=== PATIENT | female | born 1960 | race Caucasian/White ===

== ENCOUNTER 2017-03-18 15:59 | Emergency (ER) | payer OTHER ==
[~2017-03-18] VITALS: Ht 154.9 cm; Wt 90.0 kg
[2017-03-18 16:00] VITALS: Ht 154.9 cm; Wt 90.0 kg
--- NOTE | 2017-03-18 16:40 | ERD ---
ER Documentation Chief Complaint Date/Time DATE: 03/18/17 TIME: 16:37 Chief Complaint Dizziness and intermittent hand numbness x1 week. HPI Patient is a 56-year-old female with hypertension who presents with 1 week of lightheadedness that is worse with standing. She also reports a gradual onset, constant, diffuse headache. She complains of paresthesias to her bilateral hands for 1 month, as well as her legs feeling heavy. She denies fever, dysuria , dark stool, focal weakness, vomiting, chest pain. She reports occasional shortness of breath on exertion that resolves with rest. She acknowledges anxiety, denies depression. She reports feeling nausea. She thinks her legs are more swollen than usual. She reports occasional palpitations. ROS All systems reviewed and are negative except as per history of present illness. Allergies Allergies: Coded Allergies: No Known Allergy (Unverified , 03/18/17) PMhx/Soc Past medical history: Hypertension, DVT Past surgical history: Hysterectomy, IVC filter. Social history: Denies tobacco, alcohol or illicit drugs. FmHx Family History: No coronary disease, No diabetes Physical Exam Vitals Vital Signs Date Time Temp Pulse Resp B/P Pulse Ox O2 Delivery O2 Flow Rate FiO2 03/18/17 16:00 97.8 82 14 164/81 96 Physical Exam Const: Alert, no acute distress Head: Atraumatic Eyes: Normal Conjunctiva, no pallor, no icterus ENT: Normal External Ears, Nose and Mouth. Moist mucous membranes Neck: Full range of motion..~ No meningismus. Resp: Clear to auscultation bilaterally, no wheezes, no rales Cardio: Regular rate and rhythm, no murmurs Abd: Soft, non tender, non distended. No rebound or guarding Skin: No petechiae or rashes Back: No midline or flank tenderness Ext: No cyanosis, or edema, no calf tenderness or induration. Neur: Awake and alert, cranial nerves II through XII intact bilaterally, strength and sensation full in 4 extremities, no pronator drift, no dysmetria. Normal gait. Psych: Normal Mood and Affect Result Diagram: 03/18/17 1650 03/18/17 1650 Results 24 hrs Laboratory Tests Test 03/18/17 16:50 White Blood Count 9.810^3/ul Red Blood Count 4.7210^6/ul Hemoglobin 14.0g/dl Hematocrit 41.7% Mean Corpuscular Volume 88.3fl Mean Corpuscular Hemoglobin 29.7pg Mean Corpuscular Hemoglobin Concent 33.6g/dl Red Cell Distribution Width 13.1% Platelet Count 55154^3/UL Mean Platelet Volume 9.7fl Neutrophils % 55.1% Lymphocytes % 34.4% Monocytes % 8.4% Eosinophils % 1.4% Basophils % 0.5% Nucleated Red Blood Cells % 0.0/100WBC Neutrophils # 5.410^3/ul Lymphocytes # 3.410^3/ul Monocytes # 0.810^3/ul Eosinophils # 0.110^3/ul Basophils # 0.110^3/ul Nucleated Red Blood Cells # 0.010^3/ul Urine Color YELLOW Urine Clarity SLIGHTLY CLOUDY Urine pH 5.0 Urine Specific [place] 1.009 Urine Ketones NEGATIVEmg/dL Urine Nitrite NEGATIVEmg/dL Urine Bilirubin NEGATIVEmg/dL Urine Urobilinogen NEGATIVEmg/dL Urine Leukocyte Esterase NEGATIVELeu/ul Urine Microscopic RBC 0/HPF Urine Microscopic WBC 2/HPF Urine Bacteria FEW/HPF Urine Hemoglobin NEGATIVEmg/dL Urine Glucose NEGATIVEmg/dL Urine Total Protein NEGATIVEmg/dl Sodium Level 141mmol/L Potassium Level 3.9mmol/L Chloride Level 96mmol/L Carbon Dioxide Level 29mmol/L Anion Gap 20 Blood Urea Nitrogen 17mg/dl Creatinine 0.91mg/dl Glucose Level 96mg/dl Calcium Level 10.1mg/dl Total Bilirubin 1.1mg/dl Direct Bilirubin 0.00mg/dl Indirect Bilirubin 1.1mg/dl Aspartate Amino Transf (AST/SGOT) 40IU/L Alanine Aminotransferase (ALT/SGPT) 53IU/L Alkaline Phosphatase 105IU/L Troponin I < 0.012ng/ml Total Protein 8.9g/dl Albumin 4.8g/dl Globulin 4.10g/dl Albumin/Globulin Ratio 1.17 Procedures/MDM EKG read by me: Time 1700, rate 82 Rhythm: Normal sinus [place]: Normal Intervals: Normal ST-T waves: no ischemic changes Ectopy: No Q-waves: No Impression: No evidence of ischemia or arrhythmia MDM: Patient is a 56-year-old female who presents with multiple complaints. She complains of dizziness for the last week, diffuse headache that was gradual in onset and without red flags for subarachnoid hemorrhage or meningitis, generalized weakness and fatigue, paresthesias of the hands for 1 month. Patient acknowledges anxiety, and I suspect that her multitude of symptoms are related to underlying anxiety. She has normal blood and urine tests and a normal EKG. She has no focal neurological deficit. She has normal vital signs except for mild hypertension. There is no evidence of anemia, infection, dehydration. Her description of symptoms is consistent with lightheadedness rather than vertigo. Symptoms may be related to patient's antihypertensive medication. The patient's symptoms have been chronic for more than 1 week. I have advised the patient that she needs to follow-up closely with her PMD, and to return to the ER for new or worsening symptoms. Departure Diagnosis: Primary Impression: Dizziness Condition: Stable RUSSELL ARCOS MD Mar 18, 2017 16:40
[2017-03-18 17:05] LABS: ADD UMIC NO; BASOPHIL # 0.1 10^3/ul (0.0-0.1); BASOPHILS % 0.5 % (0.0-2.0); EOSINOPHILS # 0.1 10^3/ul (0.0-0.5); EOSINOPHILS % 1.4 % (0.0-7.0); HEMATOCRIT 41.7 % (37.0-47.0); LYMPHOCYTES # 3.4 10^3/ul (0.8-2.9); LYMPHOCYTES % 34.4 % (15.0-51.0); MEAN CORPUSCULAR HEMOGLOBIN 29.7 pg (29.0-33.0); MEAN CORPUSCULAR HGB CONC 33.6 g/dl (32.0-37.0); MEAN CORPUSCULAR VOLUME 88.3 fl (82.0-101.0); MEAN PLATELET VOLUME 9.7 fl (7.4-10.4); MONOCYTE # 0.8 10^3/ul (0.3-0.9); MONOCYTES % 8.4 % (0.0-11.0); NEUTROPHIL # 5.4 10^3/ul (1.6-7.5); NEUTROPHILS % 55.1 % (39.0-77.0); PLATELET COUNT 418 10^3/UL (140-415); RED BLOOD COUNT 4.72 10^6/ul (4.20-5.40); RED CELL DISTRIBUTION WIDTH 13.1 % (11.5-14.5); UR ASCORBIC ACID NEGATIVE (NEGATIVE); UR BACTERIA FEW /HPF (NONE SEEN); UR BILIRUBIN (Dip) NEGATIVE (NEGATIVE); UR BLOOD (Dip) NEGATIVE (NEGATIVE); UR CLARITY SLIGHTLY CLOUDY (CLEAR); UR COLOR YELLOW (YELLOW); UR GLUCOSE (Dip) NEGATIVE (NEGATIVE); UR KETONES (Dip) NEGATIVE (NEGATIVE); UR LEUKOCYTE ESTERASE (Dip) NEGATIVE Leu/ul (NEGATIVE); UR NITRITE (Dip) NEGATIVE (NEGATIVE); UR RBC 0 /HPF (0-5); UR SPECIFIC GRAVITY (Dip) 1.009 (1.003-1.030); UR TOTAL PROTEIN (Dip) NEGATIVE (NEGATIVE); UR UROBILINOGEN (Dip) NEGATIVE (NEGATIVE); WHITE BLOOD COUNT 9.8 10^3/ul (4.8-10.8)
--- NOTE | 2017-03-18 17:16 | RADRPT ---
PROCEDURE: XR Chest. CLINICAL INDICATION: Shortness of breath. Dizziness. TECHNIQUE: Single frontal view. COMPARISON: None. FINDINGS: The lungs are clear. The heart size is normal. There is no pleural effusion. There is no pneumothorax. IMPRESSION: 1. Normal chest radiograph. RPTAT: QQ .Robb Lewis MD, MD Date Time Electronically viewed and signed by .Robb Lewis MD, on 03/18/2017 17:16 .R/
[2017-03-18 17:22] LABS: ALANINE AMINOTRANSFERASE 53 IU/L (13-69); ALBUMIN 4.8 g/dl (3.3-4.9); ALBUMIN/GLOBULIN RATIO 1.17; ALKALINE PHOSPHATASE 105 IU/L (42-121); ANION GAP 20 (8-16); ASPARTATE AMINO TRANSFERASE 40 IU/L (15-46); BILIRUBIN,INDIRECT 1.1 mg/dl (0-1.1); BILIRUBIN,TOTAL 1.1 mg/dl (0.2-1.3); BLOOD UREA NITROGEN 17 mg/dl (7-20); CALCIUM 10.1 mg/dl (8.4-10.2); CARBON DIOXIDE 29 mmol/L (21-31); CHLORIDE 96 mmol/L (97-110); CREATININE 0.91 mg/dl (0.44-1.00); GLUCOSE 96 mg/dl (70-220); POTASSIUM 3.9 mmol/L (3.5-5.1); SODIUM 141 mmol/L (135-144); TOTAL PROTEIN 8.9 g/dl (6.1-8.1)
[2017-03-18 17:35] LABS: TROPONIN-I < 0.012 ng/ml (0.00-0.12)
[2017-03-18 19:43] VITALS: BP 150/80; PULSE 85; RESP 22; TEMP 98.6
== END 2017-03-18 19:45 | disposition home or self-care (01) ==
LOC: FTE 15:59
DX: R42 Dizziness and giddiness (principal); I10 Essential (primary) hypertension
CPT/HCPCS: 71010; 80053; 81001; 81003; 84484; 85025; 93005; Z7502

== ENCOUNTER 2017-09-19 03:08 | Inpatient (IN) | END 2017-09-21 17:45 | disposition home or self-care (01) | DRG 872 ==

== ENCOUNTER 2017-09-23 12:33 | Emergency (ER) | END 2017-09-23 12:59 | disposition left against medical advice (07) ==

== ENCOUNTER 2018-06-20 16:14 | Emergency (ER) | END 2018-06-20 18:51 | disposition home or self-care (01) ==

== ENCOUNTER 2019-03-08 06:11 | Emergency (ER) | payer OTHER ==
[~2019-03-08] VITALS: Ht 157.5 cm; Wt 91.0 kg
[~2019-03-08 06:11] MED LIST: ADV25050 INH; AMLO2.5T78 PO; ASPI-818 PO; CYCL10TA7 PO; HYDR25TA6 PO; LEVO500T10 PO; PRED10TA PO; TRAM50TA2 PO; TYL500 PO
[2019-03-08 06:13] VITALS: BP 138/80; PULSE 79; RESP 16; Ht 157.5 cm; Wt 91.0 kg
[2019-03-08] MEDS ORDERED: KETOROLAC 60 MG INJ IM STA (06:37)
--- NOTE | 2019-03-08 07:39 | ERD ---
ER Documentation Chief Complaint Chief Complaint back pain x 2 days HPI 58-year-old female presenting with right-sided back pain x2 days. Patient's back pain is mid right back inferior to the scapula. She states the pain is worse with pushing on the area in addition to movements. She denies any traumatic injuries or falls. She took ibuprofen with mild alleviation of symptoms. Denies any pleuritic chest pain or troubles urinating. Denies any flank pain denies fevers. Has had no changes in bowel month. Denies abdominal pain. Denies chest pain or shortness of breath. Medical history is hypertension hypercholesterolemia. NKDA. Surgical history denies. Social history denies ROS All systems reviewed and are negative except as per history of present illness. Medications Home Meds Active Scripts Cyclobenzaprine Hcl* (Cyclobenzaprine Hcl*) 10 Mg Tablet, 10 MG PO TID, #15 TAB Prov:DUC FERRARO PA-C 03/08/19 Tramadol HCl (Tramadol HCl) 50 Mg Tablet, 50 MG PO Q4 PRN for PAIN, #20 TAB Prov:DUC FERRARO PA-C 03/08/19 Acetaminophen* (Tylenol*) 500 Mg Tab, 500 MG PO Q4H PRN for PAIN, #30 TAB Prov:CHENTE MESSER DO 06/20/18 Levofloxacin* (Levofloxacin*) 500 Mg Tablet, 500 MG PO DAILY for 7 Days, #7 TAB Prov:BERTHA CARVALHO 09/21/17 Prednisone* (Prednisone*) 10 Mg Tab, 10 MG PO DAILY for 5 Days, #21 TAB take 6 pills tomorrow take 5 pills on the next day take 4 pills on the next day take 3 pills on the next day take 2 pills on the next day take 1 pill on the next day then stop Prov:BERTHA CARVALHO 09/21/17 Salmeterol Xinaf/Fluticasone* (Advair*) 250-50 Diskus Inhaler, 1 INH INH BID for 1 Day, #1 VIAL 1 Refill Prov:BERTHA CARVALHO 09/21/17 Reported Medications Aspirin (Aspirin Low Dose) 81 Mg Tablet.dr, 81 MG PO DAILY, #30 TAB 09/19/17 Hydrochlorothiazide* (Hydrochlorothiazide*) 25 Mg Tab, 25 MG PO DAILY, #30 TAB 09/19/17 Amlodipine Besylate* (Amlodipine Besylate*) 2.5 Mg Tablet, 2.5 MG PO DAILY, #30 TAB 09/19/17 Allergies Allergies: Coded Allergies: No Known Allergy (Unverified , 03/18/17) PMhx/Soc History of Surgery: Yes (hysterectomy(12 years ago),IVC filter) Anesthesia Reaction: No Hx Neurological Disorder: No Hx Respiratory Disorders: No Hx Cardiac Disorders: Yes (htn, blood clot right leg/hypercholesterolemia) Hx Psychiatric Problems: No Hx Miscellaneous Medical Probl: Yes Hx Alcohol Use: No Hx Substance Use: No Hx Tobacco Use: No Smoking Status: Never smoker FmHx Family History: No diabetes, No coronary disease, No other Physical Exam Vitals Vital Signs Date Temp Pulse Resp B/P (MAP) Pulse Ox O2 O2 Flow FiO2 Time Delivery Rate 03/08/19 97.7 79 16 138/80 96 06:13 (99) Physical Exam GENERAL: The patient is well-appearing, well-nourished, in no acute distress CHEST: Clear to auscultation bilaterally. There are no rales, wheezes or rhonchi. HEART: Regular rate and rhythm. No murmurs, clicks, rubs or gallops. ABDOMEN:Soft, nontender and nondistended. Good bowel sounds. No rebound or guarding. No gross peritonitis. No gross organomegaly or masses. BACK: No midline or flank tenderness. Tender to palpation over the posterior right ribs with no crepitus. SKIN: There is no apparent rash or petechiae. The skin is warm and dry. Results 24 hrs Laboratory Tests Test 03/08/19 06:58 Bedside Urine pH (LAB) 6.0 Bedside Urine Protein (LAB) Negative Bedside Urine Glucose (UA) Negative Bedside Urine Ketones (LAB) Negative Bedside Urine Blood 1+ Bedside Urine Nitrite (LAB) Negative Bedside Urine Leukocyte Esterase (L Trace Current Medications Medications Dose Sig/Madan Start Time Status Last (Trade) Ordered Route PRN Stop Time Admin Dose Reason Admin Ketorolac 60 mg ONCE STAT 03/08/19 DC 03/08/19 Tromethamine IM 06:37 06:52 (Toradol) 03/08/19 06:38 Procedures/MDM ER course: Urinalysis negative. Toradol given in ED. MDM: 58-year-old female presenting with right-sided back pain. Patient's urine is within normal limits and I have low suspicion for pyelonephritis. Patient is afebrile and does not have CVA tenderness. I considered shingles however there is no rash present during exam. I have low suspicion for acute fracture dislocation of the ribs I do not feel x-rays are indicated. I have considered pulmonary abnormalities or PE however have low suspicion. I do not feel that blood work or imaging is indicated. Patient has reproducible pain with palpation and pain with movement. Patient symptoms are likely associated muscular skeletal strain. Patient is discharged with supportive medications and told to follow-up with primary care within 1 to 2 days for close evaluation. Patient is told symptoms change or worsen to return immediately to the ER. All questions answered at discharge Departure Diagnosis: Primary Impression: Muscle spasm Condition: Stable Patient Instructions: Muscle Spasm Additional Instructions: FOLLOW UP WITH YOUR PRIMARY CARE PHYSICIAN TOMORROW.Return to this facility if you are not improving as expected. DUC FERRARO PA-C Mar 08, 2019 07:39
== END 2019-03-08 07:06 | disposition home or self-care (01) ==
LOC: FTE 06:11
DX: M62.838 Other muscle spasm (principal); I10 Essential (primary) hypertension; Z79.82 Long term (current) use of aspirin
CPT/HCPCS: 81003; 96372; J1885; Z7502